=== PATIENT | male | born 1950 ===

== ENCOUNTER 2016-10-12 10:59 | Day surgery (SDC) | payer MEDICARE ==
[2016-10-12] MEDS ORDERED: Propofol 10 mg/ml Inj (20 ML) ONE (13:54)
[2016-10-12] MEDS ORDERED: Lactated Ringer's 500 ML IV ONE (14:02)
[2016-10-12 14:33] VITALS: TEMP 98.2
[2016-10-12 14:49] VITALS: BP 131/70; PULSE 59; RESP 18; O2SAT 100
== END 2016-10-12 15:03 | disposition home or self-care (01) ==
LOC: H.ENDO 10:59
PROVIDERS: ATTEND Internal Medicine Gastroenterology
DX: Z12.11 Encounter for screening for malignant neoplasm of colon (principal); E11.9 Type 2 diabetes mellitus without complications; E78.5 Hyperlipidemia, unspecified; I10 Essential (primary) hypertension; D12.2 Benign neoplasm of ascending colon; D12.0 Benign neoplasm of cecum
CPT/HCPCS: 45380; 82948; 88305; J2001; J2704; J7120

== ENCOUNTER 2016-10-26 10:39 | Day surgery (SDC) | payer MEDICARE ==
[2016-10-26] MEDS ORDERED: Lactated Ringer's 500 ML IV ONE (12:00)
[2016-10-26] MEDS ORDERED: Propofol 10 mg/ml Inj (20 ML) ONE (13:10)
[2016-10-26 14:01] VITALS: BP 110/60; PULSE 53; RESP 14; TEMP 97; O2SAT 100
== END 2016-10-26 13:57 | disposition home or self-care (01) ==
LOC: H.ENDO 10:39
PROVIDERS: ATTEND Internal Medicine Gastroenterology
DX: R10.13 Epigastric pain (principal); E78.5 Hyperlipidemia, unspecified; E11.9 Type 2 diabetes mellitus without complications; I10 Essential (primary) hypertension; R12 Heartburn; K31.9 Disease of stomach and duodenum, unspecified
CPT/HCPCS: 43239; 82948; 88305; 88313; J2001; J2704; J7120

== ENCOUNTER 2017-11-17 02:09 | Emergency (ER) | payer MEDICARE ==
[2017-11-17 02:36] VITALS: PULSE 80; RESP 16; O2SAT 100
--- NOTE | 2017-11-17 02:57 | ED PDOC ---
HPI: General Adult Time Seen by Provider: 11/17/17 02:31 Chief Complaint (Nursing): Medical Clearance Chief Complaint (Provider): Medical Clearance History Per: Patient History/Exam Limitations: no limitations Onset/Duration Of Symptoms: Hrs Additional Complaint(s): 61 year old male with a past medical history of HTN, diabetes, and dyslipedemia brought to the ED via [place] for medical clearance prior to incarceration. Patient reports he feels well. Denies any other medical complaints, suicidal ideation, and homicidal ideation. PMD: Dr. Rosario Past Medical History Reviewed: Historical Data, Nursing Documentation, Vital Signs Vital Signs: Last Vital Signs Temp 98.0 F 11/17/17 03:10 Pulse 80 11/17/17 03:10 Resp 16 11/17/17 03:10 BP 154/82 H 11/17/17 03:10 Pulse Ox 100 11/17/17 20:19 - Medical History PMH: Anemia, Diabetes, HTN, Hypercholesterolemia - Surgical History Surgical History: No Surg Hx - Family History Family History: States: Unknown Family Hx - Home Medications Home Medications: Ambulatory Orders Medication Instructions Recorded Glimepiride [Amaryl] 4 mg PO Q12 10/24/14 Metformin Hydrochloride [Metformin] 500 mg PO BID 10/24/14 Metoprolol Succinate [Toprol Xl] 50 mg PO DAILY 10/24/14 Lisinopril/Hydrochlorothiazide 1 tab PO DAILY 05/16/15 [Lisinopril-Hydrochlorothiazide 25 mg-20 mg] - Allergies Allergies/Adverse Reactions: Allergies Allergy/AdvReac Type Severity Reaction Status Date / Time No Known Allergies Allergy Verified 10/26/16 11:57 Review of Systems ROS Statement: Except As Marked, All Systems Reviewed And Found Negative Constitutional: Positive for: Other (medical clearance ) Physical Exam - Reviewed Nursing Documentation Reviewed: Yes Vital Signs Reviewed: Yes - Physical Exam Appears: Positive for: No Acute Distress Head Exam: Positive for: ATRAUMATIC, NORMOCEPHALIC Skin: Positive for: Normal Color, Warm, Dry Eye Exam: Positive for: Normal appearance, EOMI, PERRL ENT: Positive for: Normal ENT Inspection Neck: Positive for: Normal, Painless ROM, Supple Cardiovascular/Chest: Positive for: Regular Rate, Rhythm. Negative for: Murmur Respiratory: Positive for: Normal Breath Sounds. Negative for: Respiratory Distress Gastrointestinal/Abdominal: Positive for: Normal Exam, Soft Back: Positive for: Normal Inspection. Negative for: L CVA Tenderness, R CVA Tenderness, Vertebral Tenderness Extremity: Positive for: Normal ROM. Negative for: Pedal Edema, Deformity - ECG O2 Sat by Pulse Oximetry: 100 (RA) Medical Decision Making Medical Decision Making: Time: 0240 Impression: 67 year old male presents to the ED for medical clearance for incarceration. Plan: -- Glucose, POC Routine -- Patient is stable for discharge. Scribe Attestation: Documented by Marvel Smart acting as a scribe for Dr. Ramiro Ann MD. Provider Scribe Attestation: All medical record entries made by the Scribe were at my direction and personally dictated by me. I have reviewed the chart and agree that the record accurately reflects my personal performance of the history, physical exam, medical decision making, and the department course for this patient. I have also personally directed, reviewed, and agree with the discharge instructions and disposition. Disposition - Clinical Impression Clinical Impression: Medical clearance for incarceration - Disposition Disposition: Discharged/Transfer to Law Enforcement Disposition Time: 02:30 Condition: STABLE Additional Instructions: Patient is medically stable for incarceration Instructions: General (DC) Forms: yoonew (Indonesian)
[2017-11-17 03:58] VITALS: BP 154/82; TEMP 98
== END 2017-11-17 03:10 ==
LOC: H.ER 02:09
DX: E11.9 Type 2 diabetes mellitus without complications; Z79.84 Long term (current) use of oral hypoglycemic drugs; E78.00 Pure hypercholesterolemia, unspecified; I10 Essential (primary) hypertension

== ENCOUNTER 2018-07-13 15:28 | Emergency (ER) | payer MEDICARE ==
[2018-07-13 15:50] VITALS: RESP 18
[2018-07-13 16:53] LABS: BASO # 0.1 K/uL (0.0-0.2); BASO % 1.2 % (0.0-2.0); EOS # 0.3 K/uL (0.0-0.7); EOS % 5.8 % (0.0-4.0); HEMOGLOBIN 12.6 g/dL (12.0-18.0); LYMPH # 1.2 K/uL (1.0-4.3); LYMPH % 26.1 % (20.0-40.0); MEAN CELL VOLUME 88.6 fl (80.0-94.0); MEAN CORPUSCULAR HEMOGLOBIN 29.4 pg (27.0-31.0); MEAN CORPUSCULAR HGB CONC 33.1 g/dL (33.0-37.0); MEAN PLATELET VOLUME 9.2 fl (7.2-11.7); MONO # 0.7 K/uL (0.0-0.8); MONO % 15.9 % (0.0-10.0); NEUT # 2.3 K/uL (1.8-7.0); RBC 4.29 Mil/uL (4.40-5.90); WHITE BLOOD COUNT 4.4 K/uL (4.8-10.8)
[2018-07-13 17:08] LABS: ALB/GLOB RATIO 1.3 (1.0-2.1); ALBUMIN 4.2 g/dL (3.5-5.0); ALT/SGPT 24 U/L (21-72); AST/SGOT 27 U/L (17-59); BLOOD UREA NITROGEN 26 mg/dl (9-20); CALCIUM 9.6 mg/dL (8.4-10.2); GFR NON-AFRICAN AMERICAN 55
--- NOTE | 2018-07-13 17:24 | RAD ---
Date of service: 07/13/2018 HISTORY: Cough. COMPARISON: 09/05/2015. TECHNIQUE: Chest PA and lateral FINDINGS: LUNGS: Right upper lobe pulmonary nodule The finding is marked on the study for review measuring 13 mm. This overlies the posterior aspect of the right 5th rib. PLEURA: No significant pleural effusion identified. No pneumothorax apparent. CARDIOVASCULAR: No aortic atherosclerotic calcification present. Normal cardiac size. No pulmonary vascular congestion. OSSEOUS STRUCTURES: No significant abnormalities. VISUALIZED UPPER ABDOMEN: Normal. OTHER FINDINGS: None. IMPRESSION: 13 mm pulmonary nodule right upper lobe not seen previously. Follow-up recommended. Communication of results: I discussed the findings directly with the physician gift shop assistant in the emergency department Ron Perez at 17:19
--- NOTE | 2018-07-13 18:06 | ED PDOC ---
History of Present Illness History of Present Illness: 67 y/o male presents to the ED for evaluation of a cough productive of white sputum, onset one week ago. Patient states symptoms initially began with a fever that resolved yesterday. Patient reports of taking [id number] cough medications for symptom relief. Patient additionally reports of bilateral upper abdominal and upper back pain that is only present with the cough. Otherwise, p atient denies recent travel, hemoptysis, leg pain, nausea, vomiting, diarrhea. Patient reports of having having normal bowel movement, last bowel movement was earlier today. PMD: Doron Daley HPI: Influenza Time Seen by Provider: 07/13/18 15:52 Chief Complaint: Flu-like Symptoms Chief Complaint (Provider): Flu-like Symptoms History Per: Patient Exam Limitations: no limitations Have you had recent travel within the past 21 days to any of: No Onset/Duration Of Symptoms: Days (x7) Symptoms include: fever, cough Past Medical History Reviewed: Historical Data, Nursing Documentation, Vital Signs Vital Signs: Last Vital Signs Temp 98.3 F 07/13/18 15:49 Pulse 74 07/13/18 15:49 Resp 18 07/13/18 15:49 BP 136/81 07/13/18 15:49 Pulse Ox 98 07/13/18 15:49 - Medical History PMH: Anemia, Diabetes, HTN, Hypercholesterolemia - Surgical History Surgical History: No Surg Hx - Family History Family History: States: Unknown Family Hx - Home Medications Home Medications: Ambulatory Orders Medication Instructions Recorded Glimepiride [Amaryl] 4 mg PO Q12 10/24/14 Metformin Hydrochloride [Metformin] 500 mg PO BID 10/24/14 Metoprolol Succinate [Toprol Xl] 50 mg PO DAILY 10/24/14 Lisinopril/Hydrochlorothiazide 1 tab PO DAILY 05/16/15 [Lisinopril-Hydrochlorothiazide 25 mg-20 mg] Albuterol HFA [Ventolin HFA 90 2 puff IH [id number] PRN #120 puff 07/13/18 mcg/actuation (8 g)] Azithromycin [Zithromax] 250 mg PO DAILY #6 tab 07/13/18 Benzonatate [Tessalon Perle] 100 mg PO Q8 PRN #10 capsule 07/13/18 - Allergies Allergies/Adverse Reactions: Allergies Allergy/AdvReac Type Severity Reaction Status Date / Time No Known Allergies Allergy Verified 10/26/16 11:57 Review of Systems ROS Statement: Except As Marked, All Systems Reviewed And Found Negative Constitutional: Positive for: Fever Respiratory: Positive for: Cough Gastrointestinal: Positive for: Abdominal Pain Musculoskeletal: Positive for: Back Pain Physical Exam - Reviewed Nursing Documentation Reviewed: Yes Vital Signs Reviewed: Yes - Physical Exam Appears: Positive for: No Acute Distress Head Exam: Positive for: ATRAUMATIC, NORMOCEPHALIC Skin: Positive for: Normal Color, Warm, Dry Eye Exam: Positive for: Normal appearance, EOMI, PERRL ENT: Positive for: Normal ENT Inspection Neck: Positive for: Normal, Painless ROM, Supple Cardiovascular/Chest: Positive for: Regular Rate, Rhythm. Negative for: Murmur Respiratory: Positive for: Normal Breath Sounds. Negative for: Respiratory Distress Gastrointestinal/Abdominal: Positive for: Normal Exam, Soft. Negative for: Tenderness Back: Positive for: Normal Inspection. Negative for: L CVA Tenderness, R CVA Tenderness, Vertebral Tenderness Extremity: Positive for: Normal ROM. Negative for: Deformity Neurologic/Psych: Positive for: Alert, Oriented. Negative for: Motor/Sensory Deficits Medical Decision Making Medical Decision Making: Time: 1614 Plan: -- EKG -- CMP -- Troponin I -- CBC with Differentials -- CXR -- Throat Culture -- Institution Librarian -- IV Insertion -- Rapid Strep Group A Antigen -- Influenza A B community association manager [phone] On re-evaluation, pt. in no distress. Informed of all results. States he is aleah re if the pulmonary nodule and did not require any intervention but he is uncertain if his PMD, Dr. Daley, is aware. Pt. informed that he must f/u with Dr. Daley and inform him of CXR results but is to return to ED immediately if symptoms worsen. Pt. verbalized correct understanding of plan and care. Scribe Attestation: Documented by Marvel Smart, acting as a scribe for Ron Perez PA-C. Provider Scribe Attestation: All medical record entries made by the Scribe were at my direction and personally dictated by me. I have reviewed the chart and agree that the record accurately reflects my personal performance of the history, physical exam, medical decision making, and the department course for this patient. I have also personally directed, reviewed, and agree with the discharge instructions and disposition. - Laboratory Results Result Diagrams: 07/13/18 16:50 07/13/18 16:50 Lab Results: Troponin I < 0.0120 ng/mL (0.00-0.120) 07/13/18 16:50 Total Bilirubin 0.5 mg/dl (0.2-1.3) 07/13/18 16:50 AST 27 U/L (17-59) 07/13/18 16:50 ALT 24 U/L (21-72) 07/13/18 16:50 Alkaline Phosphatase 69 U/L (38-126) 07/13/18 16:50 Total Protein 7.4 G/DL (6.3-8.2) 07/13/18 16:50 Albumin 4.2 g/dL (3.5-5.0) 07/13/18 16:50 Globulin 3.2 gm/dL (2.2-3.9) 07/13/18 16:50 Albumin/Globulin Ratio 1.3 (1.0-2.1) 07/13/18 16:50 - ECG ECG: Positive for: Interpreted By Me ECG Rhythm: Positive for: Sinus Bradycardia. Negative for: ST/T Changes Rate: 59 O2 Sat by Pulse Oximetry: 98 (RA) Pulse Ox Interpretation: Normal - Radiology X-Ray: Read By Radiologist X-Ray Interpretation: Other (13 mm pulmonary nodule right upper lobe not seen previously.) Disposition - Clinical Impression Clinical Impression: Pulmonary nodule, Acute bronchitis - Patient ED Disposition Is Patient to be Admitted: No - Disposition Referrals: Doron Daley MD [Staff Provider] - Disposition: Routine/Home Disposition Time: 17:21 Condition: STABLE Additional Instructions: FOLLOW UP WITH DR. DALEY FOR FURTHER EVALUATION RETURN TO ED IMMEDIATELY IF SYMPTOMS WORSEN BENSON DAVEY, thank you for letting us take care of you today. Your provider was Raman Trevino MD and you were treated for FLU LIKE SYMPTOMS. The emergency medical care you received today was directed at your acute symptoms. If you were prescribed any medication, please fill it and take as directed. It may take several days for your symptoms to resolve. Return to the Emergency Department if your symptoms worsen, do not improve, or if you have any other problems. Please contact your doctor or call one of the physicians/clinics you have been referred to that are listed on the Patient Visit Information form that is included in your discharge packet. Bring any paperwork you were given at discharge with you along with any medications you are taking to your follow up visit. Our treatment cannot replace ongoing medical care by a primary care provider outside of the emergency department. Thank you for allowing the [facility] team to be part of your care today. If you had an X-Ray or CT scan: A Radiologist will review the ED reading if any change in treatment is needed we will contact you. If you had a blood, urine, or wound culture: It will take several days for the results, if any change in treatment is needed we will contact you. If you had an STI test: It will take 48 hours for the results. Please call after 1 week if you have not heard back. Prescriptions: Albuterol HFA [Ventolin HFA 90 mcg/actuation (8 g)] 2 puff IH [id number] PRN #120 puff PRN Reason: Cough Azithromycin [Zithromax] 250 mg PO DAILY #6 tab Benzonatate [Tessalon Perle] 100 mg PO Q8 PRN #10 capsule PRN Reason: Cough Instructions: Acute Bronchitis, Adult (DC), Pulmonary Nodule Print Language: TURKISH
[2018-07-13 19:32] VITALS: BP 133/79; PULSE 63; TEMP 98.1; O2SAT 99
--- NOTE | 2018-07-14 10:08 | CARD ---
APPROVED REPORT Date of service: 07/13/2018 EKG Measurement Heart [id number] <Conclusion> Sinus bradycardia Otherwise normal ECG
== END 2018-07-13 19:30 | disposition home or self-care (01) ==
LOC: H.ER 15:28
DX: R91.1 Solitary pulmonary nodule (principal); J20.9 Acute bronchitis, unspecified; E11.9 Type 2 diabetes mellitus without complications; I10 Essential (primary) hypertension; Z79.84 Long term (current) use of oral hypoglycemic drugs; Z79.899 Other long term (current) drug therapy